=== PATIENT | male | born 1990 | race Caucasian/White ===

== ENCOUNTER 2019-04-20 09:28 | Emergency (ER) | payer BC ==
[2019-04-20 09:57] LABS: #Basophils 0.1 thou/uL (0.0-0.2); #Lymphocytes 1.7 thou/uL (1.20-3.40); #Monocytes 0.6 thou/uL (0.11-0.59); #Neutrophils 6.3 thou/uL (1.40-6.50); %Basophils 0.6 % (0.0-1.0); %Eosinophils 0.5 % (0.0-10.0); %Monocytes 6.5 % (0.0-10.0); %Neutrophils 72.5 % (42.0-75.0); Hemoglobin 16.6 g/dL (14.0-18.0); Mean Corpuscular HGB CONC 35.6 g/dL (32.0-36.0); Mean Corpuscular Hemoglobin 32.6 pg (27.0-31.0); Mean Corpuscular Volume 91.4 fL (78.0-98.0); Mean Platelet Volume 6.8 fL (7.4-10.4); Platelet Count 248 thou/uL (130-400); RBC Distribution Width 11.2 % (11.5-14.5); Red Blood Cell (RBC) Count 5.09 mill/uL (4.70-6.10); White Blood Cell (WBC) Count 8.7 thou/uL (4.8-10.8)
[2019-04-20 10:16] LABS: ALT (SGPT) 29 U/L (8-55); AST (SGOT) 22 U/L (5-34); Alkaline Phosphatase 59 U/L (40-150); Anion Gap 13 mmol/L (10-20); BUN (Urea Nitrogen) 19 mg/dL (8.9-20.6); Bilirubin, Total 1.2 mg/dL (0.2-1.2); Calc. Creatinine Clearance 0 mL/min (70-130); Calcium 10.2 mg/dL (7.8-10.44); Carbon Dioxide 28 mmol/L (22-29); Chloride 103 mmol/L (98-107); Estimated GFR-MDRD Greater than 90; Globulin 3.1 g/dL (2.4-3.5); Glucose 89 mg/dL (70-105); Lipase 22 U/L (8-78); Potassium 4.2 mmol/L (3.5-5.1); Protein, Total 8.1 g/dL (6.0-8.3); Sodium 140 mmol/L (136-145)
[2019-04-20] MEDS ORDERED: Morphine 4 MG/ML VIAL ONE (12:07)
--- NOTE | 2019-04-20 12:43 | CT ---
CT ABDOMEN AND PELVIS WITH CONTRAST: 04/20/19 HISTORY: Abdominal pain. COMPARISON: None. FINDINGS: Lung bases are clear. No pericardial effusion. There is abnormal dilatation, mucosal hyperenhancement and periappendiceal inflammation. The appendix arises from the medial margin of the cecum and extends caudal laterally on the right pericolic gutte r. There is no evidence for a macroperforation. Mild inflammatory stranding. The spleen, pancreas, liver, gallbladder are all unremarkable. The aortoiliac contour is nonaneurysma l. No acute osseous abnormality. IMPRESSION: Acute uncomplicated appendicitis. POS: [facility]
[2019-04-20] MEDS ORDERED: Piperacillin/Tazobactam 3.375 GM VIAL ONE (12:57)
[2019-04-20] MEDS ORDERED: Bupivacaine/Epinephrine 0.25% 30 ML VIAL ONE (13:36)
[2019-04-20] MEDS ORDERED: Fentanyl 100 MCG/2 ML VIAL ONE ×3 (13:41→15:31)
[2019-04-20] MEDS ORDERED: Midazolam HCl 2 mg/2 ml Vial ONE (13:41)
[2019-04-20] MEDS ORDERED: Promethazine HCl 25 MG/ML VIAL ONE (15:43)
--- NOTE | 2019-04-20 16:10 | HP ---
CHIEF COMPLAINT: Right lower quadrant pain. HISTORY OF PRESENT ILLNESS: This is a 29-year-old male with a 1-day history of pain in his right lower quadrant, described as sharp, does not radiate, associated with nausea, no vomiting. No history of chronic abdominal pain. No history of inflammatory bowel disease seen in the emergency room, where CT scan shows acute appendicitis. MEDICAL HISTORY: He denies. PAST SURGICAL HISTORY: Denies. MEDICATIONS TAKEN DAILY: None. ALLERGIES: NO KNOWN DRUG ALLERGIES. SOCIAL HISTORY: No smoking, alcohol, or other drugs. REVIEW OF SYSTEMS: Ten-system review of systems is otherwise negative unless described above. PHYSICAL EXAMINATION: HEENT: Sclerae anicteric. Oropharynx clear. NECK: No lymphadenopathy. CHEST: Clear. HEART: Regular rate and rhythm. ABDOMEN: Soft, tender in the right lower quadrant with localized guarding. No rebound. No abdominal hernias. No ischemic edema to extremities. DIAGNOSTIC STUDIES: CT scan shows acute appendicitis. ASSESSMENT: Acute appendicitis. PLAN: Laparoscopic appendectomy. Risks, benefits, and alternatives were discussed. He gives consent. We will do this today. Job ID: [id number]
== END 2019-04-20 13:37 | disposition admitted as inpatient to this hospital (09) ==
LOC: ERS 09:28
DX: K35.80 Unspecified acute appendicitis (principal); F17.220 Nicotine dependence, chewing tobacco, uncomplicated
CPT/HCPCS: 36415; 74177; 80053; 83690; 85025; 88304; 96365; 96375; J2250; J2270; J2543; J2550; J3010